=== PATIENT | male | born 2005 | race Caucasian/White ===

== ENCOUNTER 2024-01-10 16:38 | Emergency (ER) | payer BC, MEDICAID ==
[~2024-01-10] VITALS: Ht 175.3 cm; Wt 114.0 kg
[2024-01-10 17:02] VITALS: O2SAT 97
[2024-01-10] MEDS ORDERED: IBUP-2028 MT (19:30)
[2024-01-10 19:45] VITALS: BP 136/71; PULSE 66; RESP 16; TEMP 98.2
[2024-01-10] MEDS: IBUPROFEN 400MG TABLET PO ONE (19:45)
[2024-01-10] MEDS: ACETAMINOPHEN 325MG TABLET PO ONE (19:45)
== END 2024-01-10 19:46 | disposition home or self-care (01) ==
LOC: ER 16:38
DX: M25.521 Pain in right elbow (principal)
CPT/HCPCS: 73080; 99283